=== PATIENT | female | born 1965 | race Caucasian/White ===

== ENCOUNTER 2018-08-18 12:38 | Emergency (ER) | payer MEDICAID, OTHER ==
[~2018-08-18] VITALS: Ht 165.1 cm; Wt 79.4 kg
--- NOTE | 2018-08-18 13:03 | NUR ---
Patient discharged to home in stable conditon. Written and verbal after care instructions given. Patient verbalizes understanding of instructions.
== END 2018-08-18 13:04 | disposition home or self-care (01) ==
LOC: ER 12:38
DX: L72.3 Sebaceous cyst (principal)
CPT/HCPCS: A4663

== ENCOUNTER 2018-08-23 13:20 | Emergency (ER) | payer OTHER ==
[~2018-08-23] VITALS: Ht 165.1 cm; Wt 79.4 kg
--- NOTE | 2018-08-23 13:45 | NUR ---
PATIENT WAS MSE BY DR DONAHUE IN ROOM 02B. PATIENT A & O X3.
--- NOTE | 2018-08-23 13:50 | NUR ---
DR DONAHUE AT BEDSIDE I & D WAS PERFORMED PATIENT TOLERATED WELL NO S/S ANY DISTRESS.
[2018-08-23 13:59] VITALS: BP 125/61
--- NOTE | 2018-08-23 13:59 | NUR ---
Patient discharged to home in stable conditon. Written and verbal after care instructions given. Patient verbalizes understanding of instructions.
[2018-08-23] MEDS ORDERED: LIDOCAINE HCL 1% 20 ML VIAL TP ONE (14:00)
== END 2018-08-23 14:01 | disposition home or self-care (01) ==
LOC: ER 13:20
DX: L72.3 Sebaceous cyst (principal)
CPT/HCPCS: 10060; 99283; J3490; A4663

== ENCOUNTER 2018-08-25 12:13 | Emergency (ER) | payer OTHER ==
[~2018-08-25] VITALS: Ht 165.1 cm; Wt 79.4 kg
--- NOTE | 2018-08-25 12:39 | NUR ---
PATIENT WAS SEEN BY MD. SIMMONS AND FOLLOW UP INSTRUCTIONS GIVEN AND EXPLAINED TO PATIENT WHO STATES SHE UNDERSTANDS ALL INSTRUCTIONS.
== END 2018-08-25 12:41 | disposition home or self-care (01) ==
LOC: ER 12:14
DX: L02.414 Cutaneous abscess of left upper limb (principal)
CPT/HCPCS: A4663

== ENCOUNTER 2023-03-16 11:18 | Emergency (ER) | payer OTHER ==
[~2023-03-16] VITALS: Ht 167.6 cm; Wt 77.1 kg
[2023-03-16 11:29] VITALS: O2SAT 98
== END 2023-03-16 12:08 | disposition home or self-care (01) ==
LOC: ER 11:22
DX: J03.90 Acute tonsillitis, unspecified (principal); Z98.890 Other specified postprocedural states
CPT/HCPCS: A4606; A4663